=== PATIENT | female | born 1995 ===

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

== ENCOUNTER 2017-09-18 13:56 | Emergency (ER) | payer OTHER ==
[2017-09-18 15:41] VITALS: BP 140/76
--- NOTE | 2017-09-18 16:12 | UC ---
FLU HPI - HPI Summary HPI Summary: Pt c/o sudden onset of fever, myalgia, [place], cough, nasal congestion, fever X 2 days. - History of Current Complaint Chief Complaint: UCRespiratory Stated Complaint: FLU SXS Time Seen by Provider: 09/18/17 15:38 Hx Obtained From: Patient Hx Last Menstrual Period: 08/14/17 ?: No Onset/Duration: Sudden Onset, Still Present Severity Currently: Mild Severity Initially: Moderate Pain Intensity: 6 Associated Signs & Symptoms: Positive: Fever, Myalgia, Cough, Nasal Congestion Related Hx: Possible Flu/Infectious Exposure - Allergy/Home Medications Allergies/Adverse Reactions: Allergies Allergy/AdvReac Type Severity Reaction Status Date / Time No Known Allergies Allergy Verified 09/18/17 15:41 Home Medications: Home Medications Desogestrel & Ethinyl Estradio [Enskyce 0.15-30 mg-Mcg] 1 tab PO 09/18/17 [ History] PMH/Surg Hx/FS Hx/Imm Hx Previously Healthy: Yes - Surgical History Surgical History: None - Family History Known Family History: Negative: Cardiac Disease, Hypertension, Diabetes, Other - no hx Crohn's - Social History Occupation: Student Lives: Dormitory/Roommates Alcohol Use: Weekly Substance Use Type: None Smoking Status (MU): Never Smoked Tobacco Have You Smoked in the Last Year: No Review of Systems Constitutional: Fever, Chills, Fatigue Skin: Negative Eyes: Negative ENT: Sinus Congestion Respiratory: Cough Cardiovascular: Negative Gastrointestinal: Negative Genitourinary: Negative Motor: Negative Neurovascular: Negative Musculoskeletal: Negative Neurological: Negative Psychological: Negative Is Patient Immunocompromised?: No All Other Systems Reviewed And Are Negative: Yes Physical Exam Triage Information Reviewed: Yes Appearance: Ill-Appearing Vital Signs: Initial Vital Signs Temp 99.8 F 09/18/17 15:38 Pulse 97 09/18/17 15:38 Resp 18 09/18/17 15:38 BP 140/76 09/18/17 15:38 Pulse Ox 97 09/18/17 15:38 Vital Signs Reviewed: Yes Eye Exam: Normal ENT Exam: Other ENT: Positive: Nasal congestion Dental Exam: Normal Neck exam: Normal Respiratory Exam: Normal Cardiovascular Exam: Normal Musculoskeletal Exam: Normal Neurological Exam: Normal Psychological Exam: Normal Skin Exam: Normal Flu Course/Dx - Course Course Of Treatment: Rapid flu positive:A - Differential Dx/Diagnosis Differential Diagnosis/HQI/PQRI: Bronchitis, Influenza, Upper Respiratory Infection Provider Diagnoses: INfluenza A. Bronchitis Discharge - Discharge Plan Condition: Stable Disposition: HOME Prescriptions: Azithromycin TAB* [Zithromax TAB (Z-CRYSTAL) 250 mg #6 tabs] 2 tab PO .TODAY, THEN 1 DAILY #1 crystal Benzonatate CAP* [Tessalon 100 MG CAP*] 100 mg PO Q8H PRN #30 cap PRN Reason: Cough Oseltamivir CAP* [Tamiflu CAP*] 75 mg PO Q12H #10 cap Patient Education Materials: Influenza (ED), Acute Bronchitis (ED) Forms: *School Release Referrals: [facility] [place] [facility] [Outside] Non Staff,Doctor [Primary Care Provider] - Additional Instructions: Please follow up with your PCP or return to clinic as needed. If symptoms worsen please seek care at the closest emergency room.
== END 2017-09-18 16:26 | disposition home or self-care (01) ==
LOC: UCCORT 13:56
DX: J09.X2 Influenza due to identified novel influenza A virus with other respiratory manifestations (principal); J40 Bronchitis, not specified as acute or chronic
CPT/HCPCS: 87502; 99212; G0463